=== PATIENT | female | born 1960 | race Caucasian/White ===

== ENCOUNTER 2023-06-09 15:35 | Emergency (ER) | payer OTHER, SELFPAY ==
[~2023-06-09] VITALS: Ht 152.4 cm; Wt 63.3 kg
[2023-06-09] MEDS ORDERED: OLME1TAB49 PO (16:01)
[2023-06-09] MEDS: PROPARACAINE 0.5% OPHTH SOL 15ML OD ONE (17:30)
[2023-06-09] MEDS: FLUORESCEIN OPHTH 1MG STRIP OD ONE (17:30)
[2023-06-09] MEDS ORDERED: REFR0.5D8 OD (18:04)
[2023-06-09] MEDS ORDERED: DICL0.1S12 OD (18:04)
[2023-06-09 18:13] VITALS: BP 113/61; TEMP 98; O2SAT 96
== END 2023-06-09 18:16 | disposition home or self-care (01) ==
LOC: M ED 15:35
DX: H15.101 Unspecified episcleritis, right eye (principal); I10 Essential (primary) hypertension; Z79.1 Long term (current) use of non-steroidal anti-inflammatories (NSAID); Z79.84 Long term (current) use of oral hypoglycemic drugs; Z79.899 Other long term (current) drug therapy